=== PATIENT | male | born 1940 | race Caucasian/White ===

== ENCOUNTER 2017-02-20 08:25 | Inpatient (IN) | payer MEDICARE, MEDICAID ==
[~2017-02-20] VITALS: Ht 162.6 cm; Wt 67.2 kg
[2017-02-20] MEDS ORDERED: ISOS30TA6 PO (09:35)
[2017-02-20] MEDS ORDERED: ASPI-867 PO (09:35)
[2017-02-20] MEDS ORDERED: METO25TA6 PO (09:35)
[2017-02-20] MEDS ORDERED: ENAL20TA PO (09:35)
[2017-02-20] MEDS ORDERED: SIMV20TA6 PO (09:35)
[2017-02-20] MEDS ORDERED: NITR0.4T49 SL (09:35)
[2017-02-20] MEDS ORDERED: LIDOCAINE HCL 1% 20ML VIAL (Pyxis) INJ ONE (09:45)
[2017-02-20] MEDS ORDERED: IOHEXOL-300 100 ML BOTTLE ONE (09:57)
[2017-02-20] MEDS ORDERED: MIDAZOLAM HCL 2 MG/2 ML VIAL ONE (09:58)
[2017-02-20] MEDS ORDERED: FENTANYL CITRATE/PF 50MCG/ML 2ML VIAL ONE (09:59)
[2017-02-20] MEDS ORDERED: HEPARIN SODIUM 1,000 UNIT/1ML VIAL IV ONE (10:00)
[2017-02-20] MEDS ORDERED: ATROPINE SULFATE 0.1MG/ML 10ML DISP.SYRIN ONE (10:03)
[2017-02-20] MEDS ORDERED: ATROPINE SULFATE 1MG/10ML SYR IV PRN (11:30)
[2017-02-20] MEDS ORDERED: ACETAMINOPHEN 325MG TABLET PO PRN (11:30)
[2017-02-20 11:57] VITALS: BP 144/99
[2017-02-20] MEDS ORDERED: NITROGLYCERIN 0.4MG TABLET SL SL PRN (12:30)
[2017-02-20] MEDS ORDERED: ASPIRIN 81MG EC TABLET PO SCH (12:30)
[2017-02-20] MEDS ORDERED: LISINOPRIL 5MG TABLET PO SCH (12:30)
[2017-02-20 12:35] VITALS: BP 145/97
[2017-02-20] MEDS ORDERED: NITROGLYCERIN 0.4MG TABLET SL SL SCH (13:00)
[2017-02-20 14:00] VITALS: BP 135/98
[2017-02-20 16:00] VITALS: BP 132/91
[2017-02-20] MEDS ORDERED: MEDICATION NOT ON FORMULARY EA (Simvastatin 1 TAB) PO SCH (17:00)
[2017-02-20] MEDS ORDERED: MEDICATION NOT ON FORMULARY EA (Enalapril Maleate 20 MG) PO SCH (17:00)
[2017-02-20 18:01] VITALS: BP 139/97
[2017-02-20 20:00] VITALS: BP 151/75
[2017-02-20] MEDS ORDERED: ATORVASTATIN CALCIUM 10MG TABLET PO SCH (21:00)
[2017-02-20] MEDS: METOPROLOL TARTRATE 50MG TABLET PO SCH (21:45)
[2017-02-21] VITALS (9 sets, daily range): BP systolic 103–149; BP diastolic 60–118
[2017-02-21 07:23] LABS: BASOPHILS % 0.4 % (0.0-2.0); EOSINOPHILS % 1.5 % (0.0-5.0); HEMATOCRIT. 39.9 % (42.0-52.0); HEMOGLOBIN. 13.4 g/dL (14.0-18.0); LYMPHOCYTES % 12.3 % (20.0-50.0); MEAN CORPUSCULAR HEMOGLOBIN 31.5 pg (28.0-32.0); MEAN CORPUSCULAR VOLUME 93.4 fL (80.0-94.0); MEAN PLATELET VOLUME 8.9 fl (7.4-10.4); MONOCYTES % 9.6 % (2.0-8.0); NEUTROPHILS % 76.2 % (40.0-76.0); PLATELET 198 x1000/uL (130-400); RED BLOOD CELL COUNT 4.28 mill/uL (4.7-6.1); RED CELL DISTRIBUTION WIDTH 15.5 % (11.6-14.6)
[2017-02-21 07:41] LABS: CARBON DIOXIDE 22 mEq/L (21-32); CHLORIDE 108 mEq/L (98-107)
[2017-02-21] MEDS: METOPROLOL TARTRATE 50MG TABLET PO SCH (08:16)
[2017-02-21] MEDS ORDERED: LISINOPRIL 5MG TABLET PO SCH (09:00)
[2017-02-21] MEDS ORDERED: ASPIRIN 81MG EC TABLET PO SCH (09:00)
[2017-02-21] MEDS ORDERED: ISOSORBIDE MONONITRATE 30MG TABLET SR 24HR PO SCH (09:00)
[2017-02-21] MEDS ORDERED: ASPIRIN 325MG EC TABLET PO SCH (09:00)
== END 2017-02-21 14:30 | disposition home or self-care (01) | DRG 287 ==
LOC: CCL 08:25 → 3WST 08:26 → EDBD 08:26
PROVIDERS: ADMIT Internal Medicine Cardiovascular Disease; ATTEND Internal Medicine Cardiovascular Disease
PROC: 4A023N8 Measurement of Cardiac Sampling and Pressure, Bilateral, Percutaneous Approach (ICD-10-PCS; principal; 2017-02-20)
PROC: B2111ZZ Fluoroscopy of Multiple Coronary Arteries using Low Osmolar Contrast (ICD-10-PCS; 2017-02-20)
DX: I25.118 Atherosclerotic heart disease of native coronary artery with other forms of angina pectoris (principal); I11.0 Hypertensive heart disease with heart failure; I42.9 Cardiomyopathy, unspecified; I50.9 Heart failure, unspecified; I35.0 Nonrheumatic aortic (valve) stenosis; Z91.19 Patient's noncompliance with other medical treatment and regimen; Z95.1 Presence of aortocoronary bypass graft; Z95.2 Presence of prosthetic heart valve
CPT/HCPCS: 36415; 71010; 80048; 80061; 85025; 93005; 93306; 93456; C1760; C1769; C1887; C1893; J0461; J1644; J2250; J3010; J3490; Q9967